=== PATIENT | male | born 1980 | race Caucasian/White ===

== ENCOUNTER 2017-05-14 09:09 | Emergency (ER) | payer OTHER ==
[~2017-05-14] VITALS: Ht 177.8 cm; Wt 95.2 kg
[2017-05-14] MEDS ORDERED: IBUP800 PO (10:12)
[2017-05-14] MEDS ORDERED: CYCL10 PO (10:12)
== END 2017-05-14 10:19 | disposition home or self-care (01) ==
LOC: ER 09:09
DX: M54.5 Low back pain (principal); Z87.891 Personal history of nicotine dependence
CPT/HCPCS: 96372; 99283; J1885